=== PATIENT | male | born 1950 | race Caucasian/White ===

== ENCOUNTER 2018-11-03 16:23 | Inpatient (IN) ==
[2018-11-03 17:33] LABS: BASO# 0.03 X1000 (0.0-0.2); BASO% 0.4 % (0.0-0.8); EOS# 0.24 X1000 (0.0-0.7); EOS% 3.3 % (0.0-10.0); HEMATOCRIT 42.3 % (42.0-52.0); HEMOGLOBIN 14.4 g/dL (14.0-18.0); IMM GRAN# 0.03 X1000 (0.0-0.04); IMM GRAN% 0.4 % (0.0-0.5); LYMPH# 1.35 X1000 (1.2-3.4); LYMPH% 18.5 % (20.5-51.1); MCH 29.8 PG (27-31); MCV 87.6 FL (81-99); MONO# 0.92 X1000 (0.11-0.59); MONO% 12.6 % (1.7-9.3); MPV 9.6 FL (7.4-10.4); NEUT# 4.74 X1000 (1.4-6.5); NEUT% 64.8 % (42.2-75.2); PLT 247 X1000 (130-400); RBC 4.83 XMIL (4.7-6.1); WBC 7.31 X1000 (4.8-10.8)
[2018-11-03 18:08] LABS: ALB/GLOB RATIO 1.1; CREATININE 1.2 mg/dL (0.7-1.2); POTASSIUM 4.5 mmol/L (3.5-5.1); TOTAL BILIRUBIN 0.31 mg/dL (0.20-1.00); TOTAL PROTEIN 7.6 g/dL (6.3-8.3)
--- NOTE | 2018-11-03 18:34 | Diag Imaging Result Doc PS360 ---
EXAM: FOOT COMPLETE LEFT HISTORY: ULCER TECHNIQUE: Left foot, three views COMPARISON: None. FINDINGS: No fracture. No dislocation. Prominent calcaneal bone spurs. Severe atherosclerosis. No bone erosions. No periosteal reaction. IMPRESSION: No plain film evidence of osteomyelitis. Electronically signed by Jose Caldwell 11/03/2018 6:31 PM
[2018-11-03] MEDS ORDERED: VANCOMYCIN 1 GM/NS 1 GM/250 ML IVPB IV ONE (20:13)
--- NOTE | 2018-11-03 20:55 | PROVIDER DOCUMENTATION ---
This chart was entered by Evelyn Holder Scribe, acting as scribe for Gregory Field MD. HPI-Rash/Wound/ReCheck - General Chief Complaint: Sores/Lesions Stated Complaint: DIABETIC ULCER TOE Time Seen by Provider: 11/03/18 18:24 Source: patient Allergies/Adverse Reactions: Allergies Allergy/AdvReac Type Severity Reaction Status Date / Time No Known Allergies Allergy Verified 11/03/18 19:59 Home Medications: Home Medication List Medication Instructions Recorded Confirmed Last Taken Type Aspirin [Adult Aspirin Regimen] 81 mg PO DAILY 11/03/18 11/03/18 Unknown History Atorvastatin Calcium [Lipitor] 40 mg PO DAILY 11/03/18 11/03/18 Unknown History Bisoprolol Fumarate/Hctz [Ziac 1 each PO DAILY 11/03/18 11/03/18 Unknown History 10-6.25 mg Tablet] Fish Oil/Dha/Epa [Fish Oil 1,200 2 each PO DAILY 11/03/18 11/03/18 Unknown History mg Fish Oil] Glyburide/Metformin [Glucovance 2 each PO BID 11/03/18 11/03/18 Unknown History 5-500 mg Tablet] Losartan/Hydrochlorothiazide 1 tab PO DAILY 11/03/18 11/03/18 Unknown History [Hyzaar 100-25 Tablet] Metoclopramide [Reglan] 10 mg PO BID 11/03/18 11/03/18 Unknown History Multivitamin [Multivitamins] 1 each PO DAILY 11/03/18 11/03/18 Unknown History Sulfamethoxazole/Trimethoprim 1 each PO BID 11/03/18 11/03/18 Unknown History [Bactrim Ds Tablet] - History of Present Illness-Dermatology Nature of Presenting Problem: pt is 68/m presenting to ED w/ L great toe wound. He sts that he had bought a pair of new shoes that rubbed a blister on the toe, it had started out as a small spot on the bottom of the toe, but now it has gotten swollen, red and infected. He has seen Dr. Williamson and he has treated it 2x and put pt on Bactrim , which he has taken for 2 days. Pt c/o fever, chills and night sweats as well as some calf tenderness. Has hx of DM, HTN and high lipids. Location: reports: lower extremity Quality: reports: painful Severity: reports: moderate Onset/Duration: reports: other (3 weeks) Timing: reports: getting worse Context/Associated Symptoms: reports: blisters Identifiable cause?: Yes Locality of Occurance: Home Similar Symptoms Previously?: No Recently seen or treated by another doctor?: Yes Review of Systems - Adult - REVIEW OF SYSTEMS - ADULT Constitutional: reports: chills, fever, night sweats Eyes: reports: no symptoms reported Ears, Nose, Mouth & Throat: reports: no symptoms reported Cardiovascular: reports: no symptoms reported. denies: chest pain, edema Respiratory: reports: no symptoms reported. denies: cough, shortness of breath , wheezing Gastrointestinal: reports: no symptoms reported. denies: diarrhea, nausea, vomiting Genitourinary: reports: no symptoms reported Musculoskeletal: reports: joint pain (L great toe) Integumentary: reports: no symptoms reported Neurological: reports: no symptoms reported. denies: headache/migraines Psychiatric: reports: no symptoms reported Endocrine: reports: no symptoms reported Hematologic/Lymphatic: reports: no symptoms reported Allergic/Immunologic: reports: no symptoms reported All Other Systems: Reviewed and Negative Past History - Adult - PAST MEDICAL HISTORY-ADULT Review of Records: reports: Old Records Reviewed, Nursing Assessment Review, Medications Reviewed, Social history reviewed & non-contributory. - SOCIAL HISTORY Smoking: cigarettes, less than 1 pack/day Provider spent 3-5 mins advising pt. on dangers of tobacco.: Discussed manners to quit use, and f/u contacts for add'l counseling. Substance Use: none/never Alcohol Use Frequency: never Living Situation: family Physical Exam-General - PHYSICAL EXAM-ADULT Initial Vital Signs Reviewed: Yes - CONSTITUTIONAL General Appearance: appears well, alert, no apparent distress - EYES Eyes: PERRL/EOMI - NECK Neck: non-tender, full range of motion, supple, normal inspection - RESPIRATORY Respiratory: chest non-tender, lungs clear, normal breath sounds - CARDIOVASCULAR Cardiovascular: regular rate, rhythm, no edema - LYMPHATIC Lymphatic: no adenopathy - MUSCULOSKELETAL Back Exam: normal inspection Extremity: normal range of motion, non-tender, normal capillary refill, calf tenderness (L calf), erythema (L great toe, red and swollen w/ some flaky skin) - SKIN Integumentary: normal color, normal turgor, warm/dry - NEUROLOGIC Neurologic: grossly normal - PSYCHIATRIC Psych/Mental Status: normal mood/affect, normal thought content, normal thought process, oriented x 3 Progress - PLAN OF CARE/RESULTS Progress/Plan/Lab Results: Vital Signs - 8 hr 11/03/18 16:41 Temperature 97.4 F L Pulse Rate 74 Respiratory Rate 18 Blood Pressure 129/89 O2 Sat by Pulse Oximetry 97 Laboratory Results - last 24 hr 11/03/18 11/03/18 11/03/18 16:52 16:52 16:52 WBC 7.31 RBC 4.83 Hgb 14.4 Hct 42.3 MCV 87.6 MCH 29.8 MCHC 34.0 RDW Std Deviation 12.0 Plt Count 247 MPV 9.6 Immature Gran % (Auto) 0.4 Neut % (Auto) 64.8 Lymph % (Auto) 18.5 L Craven % (Auto) 12.6 H Eos % (Auto) 3.3 Baso % (Auto) 0.4 Immature Gran # (Auto) 0.03 Neut # (Auto) 4.74 Lymph # (Auto) 1.35 Craven # (Auto) 0.92 H Eos # (Auto) 0.24 Baso # (Auto) 0.03 ESR 67 H Sodium 135 L Potassium 4.5 Chloride 94 L Carbon Dioxide 26 Anion Gap 15 BUN 27 H Creatinine 1.2 Estimated GFR/1.73 m2 60 BUN/Creatinine Ratio 23 Glucose 298 H Calculated Osmolality 286 Calcium 10.0 Total Bilirubin 0.31 AST 12 ALT 15 Alkaline Phosphatase 69 Total Protein 7.6 Albumin 4.0 Globulin 3.6 Albumin/Globulin Ratio 1.1 Orders Category Date Time Status FOOT COMPLETE LEFT [RAD] Stat Exams 11/03/18 18:01 Completed BLOOD CULTURE [BLDCUL] Stat Lab 11/03/18 18:40 Results CBC WITH ELECTRONIC DIFF [HEME] Stat Lab 11/03/18 16:52 Completed CMP [COMPREHENSIVE METABOLIC PANEL] [CHEM] Stat Lab 11/03/18 16:52 Completed SED RATE [HEME] Stat Lab 11/03/18 16:52 Completed Vancomycin 1 gm/Ns Med 11/03/18 20:13 Active 1 gm in 250 ml IV NOW Venous U/S Left Leg Stat Ther 11/03/18 19:29 Completed Result Diagrams: 11/03/18 16:52 11/03/18 16:52 - REASSESSMENT Reassessment #1 Time Reassessed: 20:17 Status: other (ULTRASOUND NEGATIVE FOR DVT; WILL CONSULT HOSPTILAST.,) Reassessment #2 Time Reassessed: 20:54 Status: other (SPOKE TO HOSPITALIST; APPRECIATE THEIR ASSISTANCE.) - XRAY 1 XRAY: Left XRAY Study: Foot Impression: Abnormal (FINDINGS: No fracture. No dislocation. Prominent calcaneal bone spurs. Severe atherosclerosis. No bone erosions. No periosteal reaction. IMPRESSION: No plain film evidence of osteomyelitis. Electronically signed by Jose Caldwell 11/03/2018 6:31 PM 11/03/18 1831) Departure - Departure Date of Disposition Decision: 11/03/18 Time of Disposition Decision: 20:54 DIAGNOSIS: Cellulitis Disposition: ADMITTED INPATIENT 09 Certified Medical Emergency: Emergent Condition: Fair Referrals and Follow-Ups: Rico Rico MD [Primary Care Provider] - - Critical Care Note This patient required my direct & personal management of CC.: No Attestation - Physician/ JUHI Attestation Patient care was provided by Advanced Practice Provider:: No The physician spent face to face time with patient:: Yes Advanced Practice Provider documentation review:: Supervising physician onsite and consulted in the evaluation and care of this patient. The physician did have a face to face encounter with the patient. This chart was documented by the indicated scribe, (Evelyn Holder, [place]) and accurately reflects the services I performed and decisions made by me, Gregory Field MD, as attested by the provider's signature.
[2018-11-03] MEDS ORDERED: MAXIPIME 2 GM in NS 100 ML IV ONE (21:30)
[2018-11-03] MEDS ORDERED: TYLENOL PO PRN (21:53)
[2018-11-03] MEDS ORDERED: VANCOMYCIN IV PER PHARMACY MISC SCH (21:53)
[2018-11-03] MEDS ORDERED: ZOFRAN IV PRN (21:53)
--- NOTE | 2018-11-03 22:25 | HISTORY AND PHYSICAL ---
DATE OF ADMISSION: 11/03/2018. PRIMARY CARE PHYSICIAN: Rico Rico MD. REASON FOR ADMISSION: Two week history of pain and swelling in the right and left big toe. HISTORY OF PRESENT ILLNESS: Mr. Juan Duran is a 68-year-old man with a past medical history of type 2 diabetes, neuropathy, peripheral arterial disease, hyperlipidemia, and hypertension who was seen by Dr. Rico two to three weeks ago when he noticed he had a ruptured blister on the plantar surface of his left big toe. Dr. Rico then prescribed some Bactrim and referred him to Dr. Williamson, general surgeon, for debridement of a callous on the medial aspect of his left big toe. He did see Dr. Williamson at that time, and he had some debridement of the callous and was given some more antibiotics. He was told to go to the ER if any redness, swelling or pain should occur. He said for the last four days he has had intermittent fever and chills and worsening swelling of the left foot, but this has gone down today because he has kept it elevated for prolonged periods. He says that the pain is confined to the distal half of his left foot. Along with intermittent fever and chills, he says he has been having increased polyuria and polydipsia over the last four days. No intermittent blurred vision. No cardiorespiratory complaints. No GI or complaints. No arthralgia or rash elsewhere. He does have a chronic history of distal numbness in his feet. REVIEW OF SYSTEMS: 12 system review was done. Positive findings as per HPI. ALLERGIES: NONE. MEDICATIONS: 1. Aspirin 81 mg daily. 2. Lipitor 40 mg daily. 3. Ziac 10/6.25 mg, 1 tablet daily. 4. Fish oil 1200 mg, 2 tablets daily. 5. Glucovance 5/500 mg, 2 b.i.d. 6. Cozaar 100/25 mg daily. 7. Reglan 10 mg daily. 8. Multivitamin tablet daily. 9. Bactrim, 1 b.i.d. SOCIAL HISTORY: He smokes about a quarter of a pack a day. Counselled the patient on this, and he says he will quit smoking. No illicit drug use. No alcohol. His son and [id number] live with him. 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 SURGICAL HISTORY: He has had surgery for gastric outlet obstruction, umbilical hernia repair, prostatectomy for cancer, and shoulder surgery. FAMILY HISTORY: Notable for heart disease, dementia and Parkinson's disease. LABORATORY WORK: Foot x-ray does not show any evidence of osteomyelitis. White count is 7,000. Hemoglobin is 14 and hematocrit is 42. Platelet count is 247. Normal differential. ESR is 67. Sodium 135, BUN 27, creatinine 1.2, glucose 298. The patient informs me that his last A1C a month ago was 9. PHYSICAL EXAMINATION: GENERAL: This is a pleasant [id number] male who is in no acute distress. He is alert and oriented to person, place and time. Normal mood and affect. VITAL SIGNS: Blood pressure is 129/89, heart rate 74, respiratory rate 18 and temperature is 97.4. HEENT: Normocephalic, atraumatic. Pupils are equal, round and reactive to light and accommodation. Extraocular movements intact. No pallor. HEENT exam is grossly normal. NECK: Supple. No JVD or carotid bruits. No thyromegaly. CHEST: Clear on auscultation. Good air entry in both lung humphrey. CARDIOVASCULAR: S1, S2. No murmurs, rubs or gallops. Rate is regular. ABDOMEN: Protuberant and soft. No hepatosplenomegaly. Bowel sounds are normal. EXTREMITIES: The patient has a few hyperpigmented skin changes in the distal aspect of both shins. He has also some mild erythema on the distal half of his left foot. The erythema was more concentrated on the left hallux. There appears to be some debrided skin on the medial aspect of the left hallux which is slightly swollen. There is also a small 0.5 cm shallow ulcer on the plantar surface of his left hallux. No exudation noted. No surrounding erythema. Less than an eighth of a cotton ball was inserted in this ulcer. No decreased range of motion. The area of redness is warm to touch and minimally tender. No crepitus felt. Pulses distally in all extremities are slightly diminished but symmetrical and regular. No edema. No cyanosis. No SLIDE FASTENER CHAIN ASSEMBLER : No gross focal deficit. SKIN: Skin grossly unremarkable. MUSCULAR: Grossly normal. ASSESSMENT: 1. Left hallux infection in diabetic patient. 2. Type 2 diabetes uncontrolled. 3. Peripheral arterial disease. 4. Hypertension. 5. Hyperlipidemia. PLAN: The patient will be treated with broad spectrum antibiotics, vancomycin and Maxipime. We will consult Dr. Williamson to follow up on the patient since he has seen the patient as an outpatient. He may decide if he wants to involve wound care team. Also consult Dr. Fred Cash to recommend possible outpatient IV infusion therapy. Follow his ESR and/or CRP levels to assess objectively the response to treatment. If there is an increased index of suspicion for osteomyelitis, an MRI of the hallux can be ordered. Otherwise, start patient on insulin. I do feel that the patient may benefit from once a day long acting Lantus with Metformin and possible DPP4 inhibitor treatment going forward to get him to an appropriate A1C target and antihypertensive therapy. Encourage leg elevation and DVT prophylaxis with Lovenox. cc: MD Rico Velásquez MD Lynn R. Buckner, MD [facility]ISCH HOSPITALJayy
[2018-11-03] MEDS ORDERED: VANCOMYCIN 1,150 MG in NS 250 ML IV ONE (23:00)
[2018-11-03] MEDS: LOVENOX SUBQ SCH (23:27)
[2018-11-03] MEDS: OXY IR PO PRN (23:37)
[2018-11-03] MEDS: HUMALOG SUBQ SCH (23:40)
[2018-11-04] MEDS: HUMALOG SUBQ SCH ×4 (06:27→20:34)
[2018-11-04 07:51] LABS: BASO# 0.03 X1000 (0.0-0.2); BASO% 0.4 % (0.0-0.8); EOS# 0.27 X1000 (0.0-0.7); HEMATOCRIT 40.6 % (42.0-52.0); HEMOGLOBIN 13.6 g/dL (14.0-18.0); IMM GRAN# 0.02 X1000 (0.0-0.04); IMM GRAN% 0.3 % (0.0-0.5); LYMPH# 1.64 X1000 (1.2-3.4); LYMPH% 24.1 % (20.5-51.1); MCH 29.6 PG (27-31); MCHC 33.5 g/dL (33-37); MCV 88.5 FL (81-99); MONO# 0.96 X1000 (0.11-0.59); MONO% 14.1 % (1.7-9.3); MPV 9.3 FL (7.4-10.4); NEUT# 3.88 X1000 (1.4-6.5); NEUT% 57.1 % (42.2-75.2); PLT 226 X1000 (130-400); RBC 4.59 XMIL (4.7-6.1); RDW 11.8 % (11.5-14.5)
[2018-11-04] MEDS: HYZAAR 50/12.5 MG PO SCH (08:14)
[2018-11-04] MEDS: REGLAN PO SCH ×2 (08:14→20:34)
[2018-11-04] MEDS: ZIAC 10/6.25 MG PO SCH (08:15)
[2018-11-04] MEDS: ASPIRIN EC PO SCH (08:15)
[2018-11-04] MEDS: LIPITOR PO SCH (08:15)
[2018-11-04] MEDS: BASAGLAR SUBQ SCH (08:15)
[2018-11-04] MEDS: MAXIPIME 2 GM in NS 100 ML IV SCH ×2 (08:22→20:34)
[2018-11-04 08:28] LABS: CALCIUM 9.8 mg/dL (8.8-10.2); CREATININE 1.2 mg/dL (0.7-1.2); POTASSIUM 3.9 mmol/L (3.5-5.1)
--- NOTE | 2018-11-04 10:05 | GENERAL SURGERY CONSULTATION ---
DATE: 11/04/2018 REASON FOR CONSULTATION: Left toe cellulitis. HISTORY OF PRESENT ILLNESS: A 68-year-old male with a past medical history of diabetes, peripheral artery disease, hyperlipidemia and hypertension, who has been followed by my partner, Dr. Williamson, for cellulitis of his foot. He has been put on antibiotics but it has persisted. He came to the emergency department with this pain and this redness. He is currently doing okay right now. I was asked to evaluate for an opinion. PAST MEDICAL HISTORY: 1. Diabetes mellitus, type 2. 2. Neuropathy. 3. Peripheral artery disease. 4. Hyperlipidemia. 5. Hypertension. PAST SURGICAL HISTORY: Previous debridement. Surgery for gastric outlet obstruction, umbilical hernia repair, prostatectomy, shoulder surgery. ALLERGIES: None. HOME MEDICATIONS: Reviewed. SOCIAL HISTORY: Current smoker. FAMILY HISTORY: Positive for heart disease, dementia, and Parkinson's. REVIEW OF SYSTEMS: A full 10-point review of systems obtained. Negative except for what is specified in the HPI. PHYSICAL EXAMINATION: Vital Signs: Patient is currently afebrile. His vital signs are stable. General: No acute distress. Alert, interactive, male looks his stated age. HEENT: Normocephalic, atraumatic. Pupils equal, round, and reactive to light. Mucous membranes moist. Oropharynx benign. Neck supple. Trachea midline. Cardiovascular: Regular rate and rhythm. Lungs grossly clear. Abdomen soft, nontender, nondistended. Extremities: There is some cellulitis and mild erythema noted in the left first toe. No active drainage at this point. No crepitus. Neurologic: Grossly intact. Skin: Wound as noted above. LABORATORY: White blood cell count 7, hematocrit 42, platelet count 247,000. X-ray does not show osteomyelitis. ASSESSMENT AND PLAN: A 68-year-old with left great toe cellulitis. Left great toe cellulitis. At this time, agree with IV antibiotics. Will have Dr. Williamson see him on Tuesday to see if there is any further treatment but, at this time, given the fact there is no osteomyelitis, we will try to treat this with antibiotics. I appreciate the consult. cc: Robson Albarado MD [facility]ENTERJayy
--- NOTE | 2018-11-04 14:10 | PROGRESS NOTE ---
DATE: 11/04/2018 SUBJECTIVE: The patient is resting comfortably in bed. He denies having any pain in his left toe. There is some drainage around the dressing and erythema. OBJECTIVE: Vital Signs: Temperature 98.1, blood pressure 125/62, heart rate 71, respirations 18, O2 saturation 99% on room air. General: This is an elderly male lying in bed in no acute distress. Heart: S1, S2 normal. Regular rate and rhythm. Lungs: Clear to auscultation bilaterally. Abdomen: Positive bowel sounds. Soft, nontender, nondistended. Extremities: The left great toe is erythematous and has no purulent discharge. Neurologic: The patient is alert and oriented x3. LABS: White blood cell count 6.8, hemoglobin 13, hematocrit 40, platelets 226. Sodium 136, potassium 3.9, chloride 96, CO2 of 27, BUN 24, creatinine 1.2, glucose 194. ASSESSMENT AND PLAN: 1. Left great toe cellulitis. We will continue with broad-spectrum antibiotics. General Surgery is following. We will also consult Infectious disease. 2. Diabetes mellitus type 2. We will continue with sliding scale insulin and a diabetic diet. 3. Morbid obesity. Aware. 4. Hypertension. Continue on the current antihypertensive regimen. 5. Deep vein thrombosis prophylaxis. Continue on Lovenox. cc: Berta Akbar MD
[2018-11-04] MEDS: OXY IR PO PRN (20:34)
[2018-11-04] MEDS: LOVENOX SUBQ SCH ×2 (20:35→22:37)
[2018-11-04] MEDS: VANCOMYCIN 1,900 MG in NS 500 ML IV SCH ×2 (21:24→22:38)
[2018-11-05] MEDS: OXY IR PO PRN ×2 (00:05→22:53)
[2018-11-05] MEDS: HUMALOG SUBQ SCH ×4 (05:58→22:50)
--- NOTE | 2018-11-05 07:42 | GENERAL SURGERY PROGRESS NOTE ---
DATE: 11/05/2018 SUBJECTIVE: The patient seems to be doing okay. OBJECTIVE: Vital Signs: The patient is currently afebrile. His vital signs are stable. General Examination: No acute distress. HEENT: Normocephalic, atraumatic. Pupils equal, round, reactive to light. Mucous membranes moist. Oropharynx benign. Neck: Supple. Trachea midline. Cardiovascular: Regular rate and rhythm. Lungs: Grossly clear. Abdomen: Soft, nontender, nondistended. Extremities: Dressing in place to the left great toe. No dramatic changes noted. Vascular: All extremities perfused. Neurologic: Grossly intact. Skin: As noted above. ASSESSMENT AND PLAN: A 68-year-old with left great toe cellulitis. Left great toe cellulitis. At this time, I agree with intravenous antibiotics. Dr. Williamson will see the patient again on Tuesday and make further recommendations at that point. cc: Robson Albarado MD
[2018-11-05 07:44] LABS: HEMATOCRIT 38.8 % (42.0-52.0); MCHC 33.5 g/dL (33-37); MCV 89.4 FL (81-99); MPV 8.7 FL (7.4-10.4); RBC 4.34 XMIL (4.7-6.1); RDW 11.9 % (11.5-14.5); WBC 6.14 X1000 (4.8-10.8)
[2018-11-05 08:06] LABS: AGAP 11; BUN 24 mg/dL (8-22); CHLORIDE 100 mmol/L (98-107); COSMO 287; CREATININE 1.1 mg/dL (0.7-1.2); ESTIMATED GFR > 60; GLUCOSE 167 mg/dL (70-104); POTASSIUM 3.8 mmol/L (3.5-5.1); SODIUM 140 mmol/L (136-145); TCO2 29 mmol/L (25-35)
[2018-11-05] MEDS: MAXIPIME 2 GM in NS 100 ML IV SCH (11:20)
[2018-11-05] MEDS: REGLAN PO SCH ×2 (11:25→22:53)
[2018-11-05] MEDS: ZIAC 10/6.25 MG PO SCH (11:25)
[2018-11-05] MEDS: LIPITOR PO SCH (11:25)
[2018-11-05] MEDS: ASPIRIN EC PO SCH (11:25)
[2018-11-05] MEDS: BASAGLAR SUBQ SCH (11:26)
[2018-11-05] MEDS: HYZAAR 50/12.5 MG PO SCH (11:32)
--- NOTE | 2018-11-05 14:15 | INFECTIOUS DISEASE CONSULT REP ---
DATE: 11/05/2018 CONCLUSION: Patient has an infection of his left great toe. The cellulitis is present and there may be an underlying osteomyelitis. RECOMMENDATIONS: I agree with treating the patient with cefepime and vancomycin pending culture results. I have not found in the computer any study such as MRI or bone scan to see if there is osteomyelitis in the left great toe. Therefore, I have ordered an MRI with and without contrast of the left great toe. DISCUSSION: The patient about 4 weeks ago started develop progressive swelling of his left great toe. He did not have fever or chills with it but the toe did drain. He has been admitted to the hospital here. The patient's CBC shows a white count of 6140, hemoglobin 13, platelet count 204,000. Creatinine is 1.1. GFR is greater than 60. Blood cultures are negative. An x-ray of the patient's foot showed no evidence of osteomyelitis. The patient's culture from the left great toe is growing gram-positive cocci. PAST MEDICAL HISTORY/REVIEW OF SYSTEMS: Eyes and ears: Patient has decreased hearing. His vision is okay. Neck: No stiffness. Respiratory: No cough or shortness of breath. Cardiac: No chest pain or palpitations. GI: The patient intermittently goes without having a stool for a few days. Genitourinary: No dysuria or flank pain. Bones, joints, muscles: See present illness. Endocrine: Patient is diabetic. He does not have thyroid disease. Neurologic: No seizures. The patient does have neuropathy in his feet, manifested by decreased sensation. Integument: No rash. PREVIOUS HOSPITALIZATIONS AND OPERATIONS: He has had surgery for prostate cancer, surgery on the right shoulder, ocular surgery, and gastric bypass. MEDICAL DISEASES: Positive for diabetes mellitus, hypertension, prostate cancer , and peripheral arterial disease. INFECTIOUS DISEASE HISTORY: Positive for UTI. FAMILY HISTORY: Positive for diabetes mellitus and myocardial infarction. [place]IAL HISTORY[place] . 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 He smokes cigarettes but does not drink alcoholic beverages or abuse drugs. PHYSICAL EXAMINATION: Vital Signs: Temperature is 98.1 degrees, pulse 64, respirations 20, blood pressure 134/63. The patient weighs 215 pounds. General: This is an obese, elderly male. He is in no acute distress. Head/eyes/ears/nose/throat: He can hear my spoken words and see near objects. There is no drainage from the nose or ears. There is no white coating to the tongue. Neck: No meningismus. Lungs: Clear to auscultation. Cardiovascular: Regular heart rate. Abdomen: Soft and nontender. Extremities: There are diminished peripheral pulses. The left great toe is swollen and erythematous and has some seropurulent drainage coming from the left great toe. Integument: No rash noted. Thank you for the consult. ADDENDUM: Toe is growing MRSA. Will continue vancomycin and stop cefepime. cc: Fred Cash MD MTDJayy
--- NOTE | 2018-11-05 14:37 | PROGRESS NOTE ---
DATE: 11/05/2018 SUBJECTIVE: The patient is resting comfortably in bed. No acute events noted overnight. OBJECTIVE: Vital Signs: Temperature 98.1 degrees, blood pressure 134/63, heart rate 64, respirations 20, O2 saturation is 98% on room air. General: This is an elderly male lying in bed, in no acute distress. Heart: S1, S2 normal. Regular rate and rhythm. Lungs: Clear to auscultation bilaterally. Abdomen: Positive bowel sounds. Soft, nontender, nondistended. Extremities: The left great toe is wrapped in a clean, dry dressing. LABS: Hemoglobin 13, hematocrit 38, platelets 204,000. Sodium 140, potassium 3.8, chloride 100, CO2 29, BUN 24, creatinine 1.1. ASSESSMENT AND PLAN: 1. Left great toe cellulitis secondary to methicillin-resistant Staphylococcus aureus. Continue with antibiotic therapy as directed by Dr. Cash. General Surgery is following. 2. Diabetes mellitus type 2. Continue on sliding scale insulin. 3. Hypertension. Continue on the current antihypertensive regimen. 4. Dyslipidemia. Continue on Lipitor. 5. Deep vein thrombosis prophylaxis. Continue on Lovenox. cc: Berta Akbar MD
--- NOTE | 2018-11-05 14:56 | INFECTIOUS DISEASE CONSULT REP ---
DATE: 11/05/2018 ADDENDUM TO CONSULTATION: The microbiology lab called. The patient's toe is growing methicillin- resistant Staph aureus. I plan to continue vancomycin and discontinue cefepime. cc: Fred Cash MD
[2018-11-05] MEDS: SANTYL OINT TOP SCH (18:01)
[2018-11-05] MEDS: LOVENOX SUBQ SCH (22:52)
[2018-11-05] MEDS: VANCOMYCIN 1,900 MG in NS 500 ML IV SCH (22:54)
[2018-11-05] MEDS ORDERED: BLISTEX MEDICATED BERRY LIP BALM TOP PRN (23:04)
[2018-11-06] MEDS: HUMALOG SUBQ SCH ×4 (06:21→22:46)
--- NOTE | 2018-11-06 06:30 | Extremity Venous Study ---
PROCEDURE NAME: Venous U/S Left Leg - 11/03/2018 REQUESTING PHYSICIAN: Dr. Field in the emergency department. KNIFE BLADE POLISHER: Alexis. INDICATIONS: Ulceration of the left great toe. EQUIPMENT: [id number] ultrasound system with a 9 L-D transducer. FINDINGS: Images of the left lower extremity venous system with a comparison shot to the right common femoral vein were obtained in both sagittal and transverse planes. Doppler was used to evaluate veins for spontaneity, phasicity, respiratory excursion, and digital augmentation. RESULTS: Normal venous compression and normal venous flow. No obvious superficial or deep venous thrombosis noted on this study. INTERPRETATION: Essentially normal left lower extremity venous study. cc: Robson Albarado MD
[2018-11-06 07:20] LABS: HEMATOCRIT 36.9 % (42.0-52.0); HEMOGLOBIN 12.4 g/dL (14.0-18.0); MCH 29.9 PG (27-31); MCHC 33.6 g/dL (33-37); MCV 88.9 FL (81-99); MPV 9.1 FL (7.4-10.4); RBC 4.15 XMIL (4.7-6.1); RDW 11.9 % (11.5-14.5); WBC 6.98 X1000 (4.8-10.8)
[2018-11-06 07:46] LABS: AGAP 10; BUN 21 mg/dL (8-22); CALCIUM 9.1 mg/dL (8.8-10.2); CHLORIDE 101 mmol/L (98-107); COSMO 282; CREATININE 1.1 mg/dL (0.7-1.2); ESTIMATED GFR > 60; GLUCOSE 166 mg/dL (70-104); SODIUM 138 mmol/L (136-145); TCO2 27 mmol/L (25-35)
[2018-11-06] MEDS: LIPITOR PO SCH (10:06)
[2018-11-06] MEDS: HYZAAR 50/12.5 MG PO SCH (10:06)
[2018-11-06] MEDS: ASPIRIN EC PO SCH (10:06)
[2018-11-06] MEDS: REGLAN PO SCH ×2 (10:06→22:45)
[2018-11-06] MEDS: ZIAC 10/6.25 MG PO SCH (10:07)
[2018-11-06] MEDS: BASAGLAR SUBQ SCH (10:20)
--- NOTE | 2018-11-06 10:49 | PROGRESS NOTE ---
DATE: 11/06/2018 SUBJECTIVE: The patient is resting comfortably in bed. He has no complaints at this time. No acute events noted overnight. OBJECTIVE: Vital Signs: Temperature 98, blood pressure 129/80, heart rate 60, respirations 18, O2 saturation 97% on room air. General: This is an elderly male lying in bed in no acute distress. Heart: S1, S2 normal. Regular rate and rhythm. Lungs: Clear to auscultation bilaterally. Abdomen: Positive bowel sounds. Soft, nontender, and nondistended. Extremities: No edema. No cyanosis. Neurologic: The patient is alert and oriented x3. LABORATORY: White blood cell count 12, hemoglobin 36, hematocrit 213, sodium 138, potassium 4, chloride 101, CO2 27, BUN 21, creatinine 1.1, glucose 166, and calcium 9.1. ASSESSMENT AND PLAN: 1. Left great toe cellulitis secondary to methicillin-resistant Staphylococcus aureus. Continue on vancomycin. Further management as per ID and General Surgery. MRI pending. 2. Diabetes mellitus type 2. We will continue with sliding scale insulin. 3. Hypertension. Controlled. 4. Morbid obesity. Aware. 5. Hyperlipidemia. Continue on Lipitor. 6. Deep vein thrombosis prophylaxis. Continue on Lovenox. cc: Berta Akbar MD MTDD
--- NOTE | 2018-11-06 12:51 | Diag Imaging Result Doc PS360 ---
EXAM: MRI LOW EXT JT W/WO CON-LEFT 11/06/2018 HISTORY: L great toe osteomyelitis TECHNIQUE: Axial STIR, T1 SPGR, T1 SPGR fat sat post gadolinium, coronal T1, T2 fat sat, post gadolinium T1 coronal, sagittal STIR. COMMENT: There is increased STIR signal intensity in the distal and proximal phalanges of the great toe. There is gadolinium enhancement at the base of the distal phalanx. IMPRESSION: Osteomyelitis of the distal phalanx of the great toe and possibly in the proximal phalanx. Electronically signed by Caleb Gómez 11/06/2018 12:48 PM
[2018-11-06] MEDS: CUBICIN 600 MG in NS 100 ML IV SCH (17:57)
[2018-11-06] MEDS: SANTYL OINT TOP SCH (17:58)
--- NOTE | 2018-11-06 19:54 | INFECTIOUS DISEASE PROGRESS NO ---
DATE: 11/06/2018 PRESENT ILLNESS: Mr. Duran has cellulitis with osteomyelitis growing methicillin-resistant Staph aureus to the left great toe. MEDICATIONS: Today is day 3 of IV vancomycin per pharmacy dosing. PHYSICAL EXAMINATION: Vital Signs: Temperature is 98 degrees, pulse rate 60, respiratory rate 18, blood pressure 129/80, O2 saturations 97% on room air. General: This is a chronically ill- appearing, elderly gentleman. He is lying in bed in no acute distress. HEENT: Atraumatic, normocephalic. Oral mucous membranes are pink and moist. Conjunctivae are pink. Neck: Supple. Trachea is midline. Cardiovascular: Heart rate is irregular. Pedal and radial pulses are +2 bilaterally, mild left pedal edema is noted. Respiratory: Lung sounds are clear to auscultation. Abdomen: Large, soft and nontender. Bowel sounds are active. Integumentary: Skin is warm and dry. The left great toe has some swelling and erythema with dry scabby abrasions noted. Neurologic: He is awake, alert, and oriented. Able to move all extremities independently. LABORATORY AND X-RAY: Today his white count is 6.98, hemoglobin 12.4, platelet count 213,000, creatinine is 1.1. Estimated GFR is greater than 60. His left great toe has grown gram-positive coccus which looks to be MRSA. Blood cultures have shown no growth after 48 hours. The lower extremity MRI shows osteomyelitis of the distal phalanx of the great toe and possibly in the proximal phalanx of the left great toe. ASSESSMENT AND PLAN: Mr. Duran has cellulitis with osteomyelitis and methicillin-resistant Staphylococcus aureus growing to his left great toe. He is going to require 8 weeks of treatment using IV daptomycin 600 mg IV every day. We have discontinued vancomycin because of the patient's history of borderline creatinine of 1.1 to 1.2. Orders for PICC line have been put in, and Lipitor has been discontinued. I have explained to him the plan for 8 weeks of treatment using a PICC line and IV daptomycin. I have also talked to him about holding Lipitor while he is on the daptomycin. Dr. Williamson will also be seeing the patient today. In the event that he has any alternative plans, we will defer to him. These plans have been discussed with and recommended by Dr. Cash. COMORBIDITIES: Include that he is elderly, with diabetes mellitus, neuropathy, and peripheral artery disease. Dictated by MURRAY Egan for Fred Cash MD This chart was documented by, MURRAY Egan and accurately reflects the services performed, treatment plan and medical decisions as attested by the providers signature Fred Cash MD. cc: Fred Cash MD [facility]ITALJayy
[2018-11-06] MEDS: LOVENOX SUBQ SCH (22:46)
[2018-11-06] MEDS: OXY IR PO PRN (22:51)
--- NOTE | 2018-11-06 23:42 | PROGRESS NOTE ---
DATE: 11/06/2018 Mr. Juan Duran is a 68-year-old white male who has insulin-dependent diabetes mellitus. He has developed an infection involving his left great toe and I initially saw him in our outpatient offices and have treated it with p.o. antibiotics. However his swelling of his left great toe and cellulitis worsened, on Tuesday he was seen in emergency department and admitted. Dr. Albarado, my partner saw him over the weekend. He did not feel he needed any surgical debridement or drainage. He has MRSA and he is on IV vancomycin and arrangements are being made for home IV antibiotics per Dr. Cash. Right now will do local wound care and IV vancomycin. He does have good palpable pulses of the left foot. cc: Yamini Williamson MD
[2018-11-07] MEDS: HUMALOG SUBQ SCH ×4 (07:06→21:16)
[2018-11-07 07:21] LABS: HEMATOCRIT 38.4 % (42.0-52.0); HEMOGLOBIN 12.9 g/dL (14.0-18.0); MCH 29.8 PG (27-31); MCHC 33.6 g/dL (33-37); MCV 88.7 FL (81-99); RBC 4.33 XMIL (4.7-6.1); RDW 11.9 % (11.5-14.5); WBC 8.26 X1000 (4.8-10.8)
[2018-11-07 07:26] LABS: INR 0.98; PROTIME 13.8 Seconds (11.0-16.0)
[2018-11-07 07:32] LABS: AGAP 9; BUN 22 mg/dL (8-22); CALCIUM 9.5 mg/dL (8.8-10.2); CHLORIDE 100 mmol/L (98-107); COSMO 285; CREATININE 0.9 mg/dL (0.7-1.2); ESTIMATED GFR > 60; GLUCOSE 241 mg/dL (70-104); POTASSIUM 4.4 mmol/L (3.5-5.1); SODIUM 137 mmol/L (136-145); TCO2 28 mmol/L (25-35)
[2018-11-07] MEDS: REGLAN PO SCH ×2 (08:52→21:16)
[2018-11-07] MEDS: ZIAC 10/6.25 MG PO SCH (08:52)
[2018-11-07] MEDS: BASAGLAR SUBQ SCH (08:52)
[2018-11-07] MEDS: ASPIRIN EC PO SCH (08:52)
[2018-11-07] MEDS: HYZAAR 50/12.5 MG PO SCH (08:52)
--- NOTE | 2018-11-07 13:10 | PROGRESS NOTE ---
DATE: 11/07/2018 SUBJECTIVE: Patient resting comfortably in bed. Not in any obvious distress. OBJECTIVE: Vital signs: Temperature 97.2 degrees, pulse 62, respiratory rate 16, blood pressure 125/61, oxygen saturation 98%. HEENT: Atraumatic, normocephalic. Cardiovascular: S1, S2. Respiratory: Evidence of good entry bilaterally. Abdomen: Soft, nontender. No masses felt. Extremities: Wound site to the left foot is dressed. LABORATORY DATA: WBC 8.26, hematocrit 38.4, platelet count 223,000. INR is 0.9. Sodium is 137, potassium 4.4, chloride 100, bicarb 28, BUN 22, creatinine 0.59. Blood sugar 241. Wound culture positive for MRSA. DIAGNOSTIC STUDIES: MRI of the left lower extremity shows osteomyelitis of the distal phalanx as well as a possible involvement of the proximal phalanx of the great toe. ASSESSMENT AND PLAN: 1. Left grade 2 cellulitis secondary to methicillin-resistant Staphylococcus aureus. The patient is currently on vancomycin. MRI of the foot also indicates osteomyelitis of the distal as well as possibly the proximal phalanx of the left great toe. The patient has been followed by both the infectious disease service and the surgical team. 2. Diabetes mellitus type 2. Continue blood sugar monitoring as well as sliding scale insulin. 3. Hypertension. Continue current antihypertensive regimen. 4. Hyperlipidemia. Continue atorvastatin. 5. Deep vein thrombosis prophylaxis. Lovenox. ADDENDUM: The patient is currently on daptomycin and now off vancomycin. As stated above, antibiotic management is being done by the Infectious Disease team. cc: David Corrigan MD
--- NOTE | 2018-11-07 13:14 | PROGRESS NOTE ---
DATE: 11/07/2018 Mr. Juan Duran is status post incision and drainage of an anterior left chest abscess. He is receiving IV antibiotics and will need long-term IV antibiotics per Dr. Cash because he has hardware involving his cervical spine. His wound appears to be clean. He will be discharged home today on home antibiotics and will have home health care for his wound. I will see him as an outpatient. cc: Yamini Williamson MD
[2018-11-07] MEDS: SANTYL OINT TOP SCH (15:25)
--- NOTE | 2018-11-07 15:56 | PROGRESS NOTE ---
DATE: 11/07/2018 SUBJECTIVE: Mr. Juan Duran is a diabetic and has infection involving his left great toe. OBJECTIVE: On exam there does not appear to be any undrained purulence. PLAN: We are treating his toe infection with IV antibiotics, bed rest, and elevation. He has a good appetite. His sugars have been slightly elevated. We will follow along to be sure that the toe does not need any debridement. cc: Yamini Williamson MD
[2018-11-07 16:05] LABS: INR 0.95; PROTIME 13.4 Seconds (11.0-16.0)
--- NOTE | 2018-11-07 16:46 | INFECTIOUS DISEASE PROGRESS NO ---
DATE: 11/07/2018 PRESENT ILLNESS: The patient has methicillin- resistant Staphylococcus aureus cellulitis and osteomyelitis of the left great toe. MEDICATIONS: The is the first day of treatment with daptomycin. PHYSICAL EXAMINATION: Vital Signs: Temperature is 97.2 degrees, pulse 62, respirations 14, blood pressure 139/72. General: This is a chronically ill-appearing elderly male. He is in no acute distress. Head, eyes, ears, nose, and throat: The patient can hear my spoken words and see near objects. There is no white coating on his tongue. Neck: No meningismus. Lungs: Clear to auscultation. Cardiovascular: Regular heart rate. Abdomen: Soft and nontender. Extremities: The left great toe is less swollen and erythematous and it is not draining anymore. Neurologic: Patient is alert. He can move his extremities. There is no tremor. LAB AND X-RAY: A culture from the patient's toe grew methicillin-resistant Staphylococcus aureus. The CBC shows a white count of 8260, hemoglobin 12.9, and platelet count 223, 000. Creatinine is 0.9. GFR is greater than 60. ASSESSMENT AND PLAN: Patient has methicillin-resistant Staphylococcus aureus cellulitis and osteomyelitis of the left great toe. Dr. Williamson who has been caring for the patient's foot said to continue with the patient's antibiotics. Dr. Williamson has not scheduled the patient for surgery. The patient also very much wants to try treating the infection with antibiotics and not doing surgery at this time. Therefore, I have requested that a PICC be placed and I put a consult in for [facility] to treat the patient with daptomycin 600 mg IV daily for a total of 8 weeks. I have requested that the patient come to my office at 4 weeks and then again we will see him at 8 weeks at which time hopefully, we can stop his antibiotics and take out his PICC. It may be advantageous to try the patient after he is done with his 8 weeks on a low dose of an antibiotic. His organism is susceptible to both tetracyclines and Septra. I would probably favor treating the patient with doxycycline 100 mg daily rather than Septra. Because of the patient's age, I would like to stay away from sulfa drugs. COMORBIDITIES: He is elderly, he has diabetes mellitus with neuropathy. He also has peripheral arterial disease. cc: MD DEN Grande
[2018-11-07] MEDS: CUBICIN 600 MG in NS 100 ML IV SCH (16:50)
[2018-11-07] MEDS: OXY IR PO PRN (21:16)
[2018-11-07] MEDS: LOVENOX SUBQ SCH (21:16)
[2018-11-07] MEDS: MIRALAX PO SCH (21:16)
[2018-11-08] MEDS: HUMALOG SUBQ SCH ×3 (06:43→16:51)
[2018-11-08] MEDS: ASPIRIN EC PO SCH (08:38)
[2018-11-08] MEDS: MIRALAX PO SCH (08:38)
[2018-11-08] MEDS: ZIAC 10/6.25 MG PO SCH (08:38)
[2018-11-08] MEDS: BASAGLAR SUBQ SCH (08:38)
[2018-11-08] MEDS: HYZAAR 50/12.5 MG PO SCH (08:38)
[2018-11-08] MEDS: REGLAN PO SCH (08:38)
[2018-11-08] MEDS ORDERED: NS 250 ML ONE (08:39)
[2018-11-08] MEDS: SANTYL OINT TOP SCH (12:07)
--- NOTE | 2018-11-08 12:10 | DISCHARGE SUMMARY ---
ADMISSION DATE: 11/03/2018 DISCHARGE DATE: PRINCIPAL DIAGNOSIS: Cellulitis involving the left great toe. SECONDARY DIAGNOSES: 1. Type 2 diabetes mellitus. 2. Hypertension. 3. Hyperlipidemia. 4. Peripheral arterial disease. DISCHARGE MEDICATIONS: Include the following: Losartan/hydrochlorothiazide 50/12.5 p.o. daily, bisoprolol fumarate/hydrochlorothiazide 10/6.25 once a day, metoprolol 10 mg p.o. twice a day, aspirin 81 mg p.o. daily, atorvastatin 40 mg p.o. daily, fish oil 1200 mg 2 tablets daily, multivitamin 1 daily, Glucovance 5/500 two twice a day. CONSULTATIONS DONE DURING THIS HOSPITAL STAY: 1. Dr. Fred Cash of infectious disease. 2. Dr. Yamini Williamson of surgery. PROCEDURES DONE DURING THIS HOSPITAL STAY: MRI of the left lower extremity which showed evidence of osteomyelitis involving the distal phalanx of the great toe and also possibly in the proximal phalanx. HOSPITAL COURSE: Mr. Juan Duran is a 68-year-old male with a history of type 2 diabetes mellitus, neuropathy, peripheral arterial disease, hyperlipidemia, and hypertension, who was admitted to the hospital because of a 2-week history of pain and swelling involving the left great toe. The patient was diagnosed as having a diabetic foot infection. He did have an MRI of that extremity and that showed evidence of osteomyelitis of the distal phalanx of the great toe and also possibly in the proximal phalanx. The patient was seen by the infectious disease team. Wound culture came back positive for MRSA. The patient was placed on daptomycin. We also got the surgical team to see the patient. At this time, the patient has done well. He is stable. He can now be discharged home. PHYSICAL EXAMINATION: Vital Signs: During my evaluation today, his vital signs are as follows: Temperature 97.8 degrees, pulse 50, respiratory rate is 18, blood pressure 121/67, oxygen saturation is 100%. HEENT: Atraumatic and normocephalic. Cardiovascular System: S1 and S2. Respiratory System: Has evidence of good air entry bilaterally. Abdomen: Soft, nontender. No masses felt. Extremities: The left great toe looks inflamed but no obvious discharge noted. LABORATORY DATA: Blood sugar level is 256. PLAN: The patient can be discharged home today and will need to follow up with infectious disease, Dr. Fred Cash, who will determine the duration of antibiotic use. The patient will also need to follow up with the primary care physician as well as the surgeon. cc: David Corrigan MD
--- NOTE | 2018-11-08 13:37 | INFECTIOUS DISEASE PROGRESS NO ---
DATE: 11/08/2018 PRESENT ILLNESS: The patient has methicillin-resistant Staph aureus osteomyelitis of the left great toe. MEDICATIONS: This is day 2 of treatment with daptomycin. PHYSICAL EXAMINATION: Vital Signs: Temperature is 97.8 degrees, pulse 58, respirations 18, blood pressure is 121/67. General: This is a chronically ill appearing elderly male. He is in no acute distress. Head, eyes, ears, nose, and throat: He can hear my spoken words and see near objects. There is no drainage coming from his nose or ears. He does not have any white patches on his tongue. Neck: No stiffness. Lungs: Clear to auscultation. Cardiovascular: Heart rate is regular. Abdomen: Soft and nontender. Extremities: The patient's left great toe is less erythematous and swollen and there is no drainage at this time. The patient has a PICC in his left arm. The site is not erythematous or tender. LAB AND X-RAY: There are no new lab or radiographic studies. ASSESSMENT AND PLAN: Patient has methicillin-resistant Staph aureus cellulitis and osteomyelitis of the left great toe. The plan is to send the patient home on IV daptomycin for a total of 8 weeks. I have put in a consult for an arrangement for getting the home IV antibiotics all set up. I have put in an order for a CK to be done now and I have requested that the unit calls me with the results on my pager. My plan is to have the patient seen in my office at 4 weeks and then at 8 weeks and hopefully at that time we can stop the antibiotics. I have ordered a CK to be done today with the results to be called to my pager. COMORBIDITIES The patient's comorbidities are that he is elderly and he has diabetes with neuropathy, and he also has peripheral arterial disease. I have also told the patient not to take Lipitor or any other statin drugs while he is on daptomycin in order to decrease the likelihood of muscle toxicity. cc: MD DEN Grande
[2018-11-08 16:08] VITALS: BP 116/76
[2018-11-08] MEDS: CUBICIN 600 MG in NS 100 ML IV SCH (17:00)
--- NOTE | 2018-11-08 17:02 | PROGRESS NOTE ---
DATE: 11/08/2018 SUBJECTIVE: Juan Duran is a 68-year-old white male, diabetic who has infection of his left great toe. Studies have suggested no osteomyelitis. He does have palpable pedal pulses and he has been hospitalized, receiving IV antibiotics and local wound care. At the bedside today I debrided some necrotic tissue involving his left great toe using forceps and scissors and re-dressed his toe. PLAN: Plans are to discharge him home and he is going to receive outpatient IV antibiotics under the direction of Dr. Fred Cash. He is going to receive those antibiotics daily. He is going to have home health help with wound care and I discussed wound care with him and his daughter at the bedside today. I will want to see him in my outpatient office in 2 weeks for followup. He knows to contact me if there is any worsening of his left great toe. cc: Yamini Williamson MD
== END 2018-11-08 18:19 | disposition home or self-care (01) | DRG 638 ==
LOC: ED 16:23 → 3N 22:19 → SUATTDRO 22:19 → 3N 11-05 16:46
PROVIDERS: ATTEND Internal Medicine
CPT/HCPCS: 36569; 73630; 73723; 80048; 80053; 82550; 82948; 85025; 85027; 85610; 85651; 85730; 86140; 87040; 87070; 87077; 87186; 93971; 96365; 99285; A9270; A9579; J0692; J0878; J1650; J1815; J3370; J7040; J7050; XXXXX